=== PATIENT | male | born 1935 ===

== ENCOUNTER 2018-02-09 10:31 | Outpatient (CLI) | payer OTHER ==
[~2018-02-09] VITALS: Ht 185.4 cm; Wt 81.6 kg
[2018-02-09] MEDS ORDERED: FLONASE16 GM NASAL (10:43)
== END 2018-02-09 14:43 | disposition home or self-care (01) ==
LOC: OFIC 805 10:31
DX: J31.0 Chronic rhinitis (principal); R05 Cough; H90.3 Sensorineural hearing loss, bilateral